=== PATIENT | male | born 1995 | race Two or more races ===

== ENCOUNTER 2021-10-22 08:21 | Emergency (ER) | payer OTHER, SELFPAY ==
--- NOTE | ~2021-10-22 | XR_ITS ---
EXAMINATION: XR ELBOW, LEFT CLINICAL INFORMATION: Left medial elbow pain. Fall. COMPARISON: None TECHNIQUE: AP, lateral, and oblique views of the left elbow. FINDINGS: There is no evidence of acute fracture or dislocation of the left elbow. No left elbow effusion is seen. No significant spurring is noted. There is some mild soft tissue swelling seen about the dorsal proximal ulna. No calcific tendinitis of the medial epicondyle identified. XR/XR elbow LT min 3V IMPRESSION: No acute fracture or effusion of the left elbow identified.
[2021-10-22 08:25] VITALS: BP 131/86; PULSE 82; RESP 18; TEMP 36.4; O2SAT 98; BMI 37.1
--- NOTE | 2021-10-22 08:34 | ED_ITS ---
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 Mode of arrival: ambulatory Limitations: no limitations History of Present Illness HPI narrative: jaw pain MD complaint: injury to: left and elbow Onset (ago): day(s) (1) Other Extremity Injury: left: elbow Other injuries: face (left jaw) Handedness: right Place: other ([employer]) Severity: mild Relieving factors: none Exacerbating factors: other (palpation) Context: fall (slipped outside of [employer]) Associated symptoms: denies other symptoms Related Data Previous Rx's Medication Instructions Recorded cyclobenzaprine 10 mg tablet 10 mg PO TID PRN #14 tab 10/22/21 ibuprofen 600 mg tablet 600 mg PO Q6H PRN #30 tab 10/22/21 Allergies Allergy/AdvReac Type Severity Reaction Status Date / Time No Known Allergies Allergy Verified 10/22/21 08:25 Review of Systems Review of Systems: Constitutional : No Fever, No Chills ENT/Mouth : No Ear Pain, No Hoarseness, No sore throat Eyes: No Eye Pain, No Swelling, No Redness, No Foreign Body, pos jaw pain left side Cardiovascular : No Chest Pain, No SOB Respiratory : No Cough, No Dyspnea Gastrointestinal : No Nausea, No Vomiting, No Diarrhea, No abdominal Pain Genitourinary : No Dysuria, No Hematuria Musculoskeletal : positive joint pain, No Myalgias, No Joint Swelling Skin : No Skin lacerations, No rash Neuro : No Weakness, No Numbness, No Loss of Consciousness, No Dizziness, No Headache [facility] Past Medical History Medical History (Updated 10/22/21 @ 08:58 by Kim Hutchins DO) No pertinent past medical history Social History Social History (Updated 10/22/21 @ 08:43 by Kim Hutchins DO) Patient Tobacco Use Status: Never used Tobacco Use of substances other than those prescribed or required for medical reasons: No Advance Directives: No Advance Directives Information Provided: No Physical Exam Vital Signs: Vital Signs: Last Vital Signs Temp 97.5 F 10/22/21 08:25 Pulse 63 10/22/21 09:16 Resp 18 10/22/21 08:25 BP 113/73 10/22/21 09:16 Pulse Ox 98 10/22/21 08:25 BMI result Body Mass Index 37.1 Appearance: Alert. Oriented X3. No acute distress. Eyes: Pupils equal, round and reactive to light. ENT: Pharynx normal. normal bite no trismus can hold and bite down on tongue depressor no issues and no pain , mild swelling left lower mandible very minimal Neck: Normal inspection. Neck supple. CVS: Normal heart rate and rhythm. Pulses normal. Respiratory: No respiratory distress. Breath sounds normal. Abdomen: Soft and nontender. Skin: Skin warm and dry. Normal skin color. Normal skin turgor. Extremities: No lower extremity edema. L elbow mild contusion noted just proximal posterior no effusion, distal NV intact Neuro: Oriented X 3. No motor deficit. No sensory deficit. MDM - Extremity Injury (Upper) MDM Narrative Medical decision making narrative: 26 yo male with no sig PMH no oral anti coagulation comes in with c/o L elbow pain and bruise after fall as well as hitting L side of jaw no LOC - he is not toxic, GCS 15 no vomiting - likely soft tissue injuries doubt ICH and he has full ROM of jaw and good strength doubt jaw fracture - L elbow xrays ordered, distal NV intact. Discharge Plan Discharge Clinical Impression: Contusion Patient Disposition: Home, Self-Care Instructions: Bone Bruise (ED) Additional Instructions: return to ED for any worsening symptoms or concerns Prescriptions: New cyclobenzaprine 10 mg tablet 10 mg PO TID PRN (Reason: muscle spasm) Qty: 14 0RF ibuprofen 600 mg tablet 600 mg PO Q6H PRN (Reason: pain) Qty: 30 0RF Referrals: Lexus Sequeira MD [Primary Care Provider] - 2 days (if not better) Stand Alone Forms: Work/School Release Print Language: Swiss
--- NOTE | 2021-10-22 08:45 | PC.NURSE ---
pt a&o, no sob or chest pain. Provider into assess pt. Pt is awaiting x-ray at this time. Will continue to monitor.
--- NOTE | 2021-10-22 08:53 | PC.NURSE ---
x-ray taken at this time.
[2021-10-22 09:16] VITALS: BP 113/73; PULSE 63
== END 2021-10-22 09:41 | disposition home or self-care (01) ==
PROVIDERS: Emergency Provider Emergency Medicine; PCP Internal Medicine
DX: S50.02XA Contusion of left elbow, initial encounter (principal); S00.83XA Contusion of other part of head, initial encounter; W00.0XXA Fall on same level due to ice and snow, initial encounter; Y93.01 Activity, walking, marching and hiking; Y92.511 Restaurant or cafe as the place of occurrence of the external cause; Y99.9 Unspecified external cause status
CPT/HCPCS: 73080; 99283; 99284

== ENCOUNTER 2024-02-13 17:42 | Emergency (ER) | payer SELFPAY ==
[2024-02-13 18:00] VITALS: BP 127/85; PULSE 110; RESP 18; TEMP 37.7; O2SAT 99; BMI 39.1
--- NOTE | 2024-02-13 18:00 | ED_ITS ---
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 Patient states that he has had a sore throat and a headache over the last few hours. Patient denies any dizziness, lightheadedness, abdominal pain, nausea, vomiting, fever, chills, blurry vision, double vision, loss of vision, chest pain, difficulty breathing, shortness of breath, back pain, night sweats, pain with urination, increased urinary frequency, increased urinary urgency, blood in his urine or stool, syncope or a near syncopal episode, recent trauma or falls, bowel incontinence, bladder incontinence, or any other complaints at this time. Onset (ago): hour(s) Relieving factors: none Exacerbating factors: none Context: none Associated symptoms: denies other symptoms Treatments prior to arrival: none Related Data Previous Rx's ?Medication ?Instructions ?Recorded cyclobenzaprine 10 mg tablet 10 mg PO TID PRN muscle spasm #14 10/22/21 tabs ibuprofen 600 mg tablet 600 mg PO Q6H PRN pain #30 tabs 10/22/21 penicillin V potassium 500 mg 500 mg PO BID 10 days #20 tabs 02/13/24 tablet Allergies Allergy/AdvReac Type Severity Reaction Status Date / Time No Known Allergies Allergy Verified 02/13/24 18:00 Review of Systems Constitutional: Constitutional: Reports no additional constitutional complaints, Denies chills, Denies fever(s), Reports headache(s) and Denies night sweats Eyes: Eyes: Reports no additional eye complaints, Denies blurry vision, Denies change in vision, Denies diplopia, Denies eye discharge, Denies loss of vision and Denies eye pain ENT: Denies dizziness, Reports headache(s) and Reports sore throat Cardiovascular: Cardiovascular: Reports no additional cardiovascular complaints, Denies chest pain, Denies lightheadedness, Denies Loss of Consciousness and Denies dyspnea Respiratory: Respiratory: Reports no additional respiratory complaints and Denies dyspnea Gastrointestinal: Gastrointestinal: Reports no additional gastrointestinal complaints, Denies abdominal pain, Denies melena, Denies hematochezia, Denies change in bowel habits and Denies change in stool character Genitourinary: Genitourinary: Reports no additional male genitourinary complaints, Denies hematuria, Denies oliguria, Denies difficulty urinating, Denies dysuria, Denies urinary frequency, Denies urinary hesitancy, Denies urinary incontinence and Denies urinary urgency Musculoskeletal: Musculoskeletal: Reports no additional musculoskeletal complaints, Denies numbness and Denies tingling Neurologic: Denies dizziness, Reports headache(s), Denies loss of vision, Denies numbness and Denies tingling Psychiatric: Psychiatric: Reports no additional psychiatric complaints Endocrine: Endocrine: Reports no additional endocrine complaints Hematologic/Lymphatic: Hematologic/Lymphatic: Reports no additional hematologic/lymphatic complaints Allergic/Immunologic: Allergic/Immunologic: Reports no additional allergic/immunologic complaints PMFSH Past Medical History Attestation statement: The following information was validated with the patient. Source: old records reviewed and nursing notes reviewed Medical History No pertinent past medical history Social History Social History Patient Tobacco Use Status: Never used Tobacco Advance Directives: No Advance Directives Information Provided: No Do you have a plan to hurt others: No Plan Physical Exam Vital Signs: Vital Signs: Last Vital Signs Temp 100 F 02/13/24 22:32 Pulse 98 02/13/24 22:32 Resp 20 02/13/24 22:32 BP 121/74 02/13/24 22:32 Pulse Ox 98 02/13/24 22:32 O2 Del Method Room Air 02/13/24 22:32 BMI result Body Mass Index 39.1 Const: General: cooperative, no acute distress, alert and awake Nutritional Appearance: well nourished Orientation/consciousness: patient oriented x3 Limitations: no limitations HEENT: Head: Yes normal to inspection and Yes atraumatic Ears: hearing grossly normal bilaterally and external ears normal General nose exam: Normal external nose present, no nasal discharge noted and no epistaxis Face and sinus: Yes normal facial exam, No abrasion and No laceration Mouth: Normal oral and palatal mucosa present, no drooling and no muffled voice Throat: Yes abnormal tonsil (erythema and swelling) Eyes: General: appearance normal, both eyes and all related structures Periorbital: periorbital findings normal Eyelids: Yes eyelids normal Conjunctivae: conjunctivae normal Pupils: Equal, round and reactive pupils present EOM: EOMs intact bilaterally Neck: Neck: Yes normal visual inspection, Yes full ROM and Yes no lymphadenopathy Chest: Chest palpation & inspection: normal inspection of the chest Resp: Effort & Inspection: normal respiratory effort and able to speak in complete sentences GI: Inspection: Yes normal to inspection Neuro: General: patient oriented x3 and moves all extremities Cranial nerves: Yes Equal, round and reactive pupils present Cognition (Neuro): normal cognition Motor exam (neuro): 5/5 motor strength present throughout Sensory Exam: Normal double simultaneous stimulation for sensation Coord ination: [id number] test normal Extrem: General: Yes normal to inspection, Yes full ROM and Yes capillary refill normal Psych: Appearance: grossly normal Mental Status: mental status grossly normal Affect: normal affect Attitude: cooperative Thought process: Normal thought process present Thought content: Normal thought content present Insight: Good insight present (Psych) Course Course Course Narrative: This is a Rapid Medical Exam performed in triage by Yamile Azevedo PA-C. Full HPI, ROS and PE to be performed by primary ED provider. 28 year-old M w/no sig PMHx presenting to the ED c/o ball on neck after eating on Tuesday which is painful & growing. +pain with eating, +JESUS, difficulty swallowing and breathing PE: talking in complete sentences, + right submandibular lymphadenopathy noted with right tonsillar swelling/erythema and exudate Plan: Monospot, rapid strep, viral testing ordered Medications Administered Discontinued Medications Generic Name Dose Route Start Last Admin Trade Name Freq PRN Reason Stop Dose Admin Dexamethasone Sodium Phosphate 10 mg 02/13/24 21:47 02/13/24 22:17 Dexamethasone Sod Phosphate 10 Mg/Ml Vial PO 02/13/24 21:48 10 mg ONCE ONE Administration Ibuprofen 600 mg 02/13/24 20:43 02/13/24 20:46 Ibuprofen 600 Mg Tablet PO 02/13/24 20:44 600 mg ONCE ONE Administration Penicillin V Potassium 500 mg 02/13/24 21:47 02/13/24 22:17 Penicillin V Potassium 250 Mg Tablet PO 02/13/24 21:48 500 mg ONCE ONE Administration Medical Decision Making Medical Decision Making [facility] Narrative: Patient is a 28 year old assigned male at with no reported medical history presenting to the emergency department today with a headache and sore throat. Patient's physical exam showed tonsilar swelling and erythema. Patient's COVID- 19, influenza, RSV, strep, and mono tests were negative. Given the patient's clinical presentation, will treat for tonsillitis. I explained my physical exam findings as well as all test results to the patient. I answered all questions asked by the patient. I stressed the importance of the patient taking his medication as prescribed. I stressed the importance of the patient following up with his primary care provider. I stressed the importance of the patient returning to the emergency department immediately if his symptoms were to worsen or if he were to develop any dizziness, shortness of breath, difficulty breathing, chest pain, blurry vision, loss of vision, nausea, vomiting, abdominal pain, fever, chills, back pain, or any other complaints. Patient verbalized agreement and understanding with this treatment plan and discharge. Differential Diagnosis Differential Diagnoses: The differential diagnosis associated with the presentation includes Tonsillitis Pharyngitis Strep throat COVID-19 Influenza RSV [place] Admission/Observation Consideration of admission/observation: Escalation of care including admission/observation considered Patient would have been admitted to the hospital had his work up had any findings where hospital admission was appropriate and his clinical presentation warranted hospital admission. Lab Data [facility] Lab Attestation statement: I reviewed the patient's lab results. My interpretation of these results are in the [facility] Rationale portion of this note. Labs: Lab Results 02/13/24 Range/Units 19:13 Monoscreen Negative (Negative) Influenza Type A (PCR) NEGATIVE (Negative) Influenza Type B (PCR) NEGATIVE (Negative) RSV RNA Qual (PCR) NEGATIVE (Negative) SARS-CoV-2 RNA (RT-PCR) NEGATIVE (Negative) S. pyogenes GrpA STONEY Negative (Negative) Prescription Management I considered prescription management with: Antibiotic (patient prescribed an antibiotic for tonsilitis) Discharge Plan Discharge Clinical Impression: Acute non-recurrent streptococcal tonsillitis Patient Disposition: Home, Self-Care Instructions: Tonsillitis (ED) Additional Instructions: Follow up with your primary care provider. Return to the emergency department immediately if your symptoms worsen or if you develop any dizziness, shortness of breath, difficulty breathing, chest pain, blurry vision, loss of vision, nausea, vomiting, abdominal pain, fever, chills, back pain, or any other complaints. Doc?seguimiento?con tai m?dico de atenci?n primaria. Acuda inmediatamente al servicio de urgencias si yolanda s?ntomas empeoran o si presenta falta de aliento, dificultad para respirar, dolor tor?cico, mareos, aturdimiento, dolor de espalda, dolor abdominal, fiebre, escalofr?os o cualquier otro s?ntoma. Take your antibiotic as prescribed until it is complete. Even if your symptoms start to resolve, you must complete the antibiotic course. [place] el antibi?kate seg?n lo prescrito hasta completarlo. Aunque los s?ntomas empiecen a mejorar, debe completar el tratamiento antibi?kate. Prescriptions: New penicillin V potassium 500 mg tablet 500 mg PO BID 10 Days Qty: 20 0RF No Action cyclobenzaprine 10 mg tablet 10 mg PO TID PRN (Reason: muscle spasm) Qty: 14 0RF ibuprofen 600 mg tablet 600 mg PO Q6H PRN (Reason: pain) Qty: 30 0RF Referrals: Lexus Sequeira MD [Primary Care Provider] - Stand Alone Forms: Work/School Release Interventions: ED Discharge Assessment Last Done: 02/13/24 22:32 Discharge Date/Time: 02/13/24 22:32 Print Language: Malay
[2024-02-13 19:35] LABS: IDNOW Serial# 08D9AD1C; Strep A Nucleic Acid Negative (Negative)
[2024-02-13 19:59] LABS: Influenza A PCR NEGATIVE (Negative); Influenza B PCR NEGATIVE (Negative); Resp Syncy Virus RNA Qual PCR NEGATIVE (Negative); SARS COV2 PCR INHOUSE NEGATIVE (Negative)
[2024-02-13 20:43] VITALS: BP 134/76; PULSE 101; RESP 18; TEMP 37.9; O2SAT 98
[2024-02-13] MEDS: Ibuprofen 600 MG TABLET PO (20:46)
[2024-02-13 21:23] VITALS: BP 121/74; PULSE 98; RESP 20; TEMP 37.7; O2SAT 98
[2024-02-13 21:41] LABS: Monotest Negative (Negative)
[2024-02-13] MEDS: dexAMETHasone sod phosphate 10 MG/ML VIAL PO (22:17)
[2024-02-13] MEDS: Penicillin V Potassium 250 MG TABLET 500 MG PO (22:17)
--- NOTE | 2024-02-13 22:31 | PC.NURSE ---
manager ent services utilized. pt medicated prior to discharge.
[2024-02-13 22:32] VITALS: BP 121/74; PULSE 98; RESP 20; TEMP 37.7; O2SAT 98
== END 2024-02-13 22:32 | disposition home or self-care (01) ==
PROVIDERS: Physician Assistant; Emergency Provider Internal Medicine; PCP Internal Medicine
DX: J03.00 Acute streptococcal tonsillitis, unspecified (principal); Z03.818 Encounter for observation for suspected exposure to other biological agents ruled out; Z79.899 Other long term (current) drug therapy
CPT/HCPCS: 0241U; 36415; 86308; 87651; 99283; J1100